=== PATIENT | male | born 1990 | race Caucasian/White ===

== ENCOUNTER 2019-08-10 10:42 | Outpatient (CLI) | payer OTHER, SELFPAY ==
--- NOTE | ~2019-08-10 | US_ITS ---
US breast LT complete DATE: 08/10/2019 11:02 INDICATION: Left breast pain TECHNIQUE: High-resolution ultrasound imaging and color flow imaging of the left breast COMPARISON: None FINDINGS: In the subareolar area of the left breast there is serpiginous hypoechoic tissue likely rep resenting subareolar fibroglandular tissue consistent with gynecomastia. Mammographic correlation is recommended. IMPRESSION: BI-RADS Category 0: Incomplete; need additional imaging evaluation Recommendation: Diagnostic left digital mammogram, including comparison MLO view of right breast Reviewed, dictated and finalized at [facility]. Reviewed, dictated and finalized at location A. TH MANAGEMENT DIRECTOR IMPRESSION: BI-RADS Category 0: Incomplete; need additional imaging evaluation Recommendation: Diagnostic left digital mammogram, including comparison MLO vie w of right breast
== END 2019-08-10 10:43 | disposition home or self-care (01) ==
LOC: ANHIMG 10:46
PROVIDERS: PCP Family Medicine; Visit Provider Physician Assistant Medical
DX: N64.4 Mastodynia (principal)
CPT/HCPCS: 76641

== ENCOUNTER 2019-08-14 11:30 | Outpatient (CLI) | payer OTHER, SELFPAY ==
[2019-08-14 12:11] LABS: Alanine Aminotransferase 69 U/L (4-50); Albumin Level 4.5 g/dL (3.5-5.1); Alkaline Phosphatase 68 U/L (38-126); Aspartate Amino Transferase 41 U/L (17-59); Bilirubin,Total 1.1 mg/dL (0.2-1.3); Blood Urea Nitrogen 13 mg/dL (9-20); Calcium 9.5 mg/dL (8.4-10.2); Carbon Dioxide 27 mmol/L (22-30); Chloride 103 mmol/L (98-107); Estimated Glomerular Filt Rate > 60; Glucose 109 mg/dL (75-110); Potassium 4.3 mmol/L (3.4-5.0); Sodium 138 mmol/L (137-145)
[2019-08-17 05:51] LABS: Prolactin 12.5 ng/mL (***)
[2019-08-18 07:34] LABS: Testosterone Total 184 ng/dL (250-1100)
== END 2019-08-14 11:31 | disposition home or self-care (01) ==
LOC: ANHLAB 11:36
PROVIDERS: PCP Family Medicine; Visit Provider Physician Assistant Medical
DX: R94.5 Abnormal results of liver function studies (principal); N62 Hypertrophy of breast; R63.5 Abnormal weight gain
CPT/HCPCS: 36415; 80053; 84146; 84403; 84443

== ENCOUNTER 2019-09-03 12:27 | Outpatient (CLI) | payer OTHER, SELFPAY ==
--- NOTE | ~2019-09-03 | MM_ITS ---
EXAMINATION: MM diagnostic mammo unilat LT INDICATION: Mastodynia TECHNIQUE: Craniocaudal and mediolateral oblique views of the left breast are obtained using full fie ld digital mammography. Mediolateral oblique view of the right breast is obtained for comparison. COMPARISON: None available BREAST PARENCHYMAL COMPOSITION: The breasts are almost entirely fatty. FINDINGS: There is flame-shaped subareolar density of the breasts, left greater than right. No suspic ious mass, calcification, or architectural distortion are identified. IMPRESSION: 1. Asymmetric gynecomastia, left greater than right. Clinical follow-up is recommended. BI-RADS Category 2: Benign finding(s). Reviewed, dictated and finalized at location A. IMPRESSION: 1. Asymmetric gynecomastia, left greater than right. Clinical follow-up is raven mmended. BI-RADS Category 2: Benign finding(s).
== END 2019-09-03 12:28 | disposition home or self-care (01) ==
LOC: ANHIMG 12:29
PROVIDERS: PCP Family Medicine; Visit Provider Physician Assistant Medical
DX: R92.8 Other abnormal and inconclusive findings on diagnostic imaging of breast (principal); N62 Hypertrophy of breast
CPT/HCPCS: 77065

== ENCOUNTER 2019-09-19 13:58 | Outpatient (CLI) | payer OTHER, SELFPAY ==
[2019-09-19 14:35] LABS: Alanine Aminotransferase 59 U/L (4-50); Albumin Level 4.6 g/dL (3.5-5.1); Alkaline Phosphatase 68 U/L (38-126); Aspartate Amino Transferase 42 U/L (17-59); Bilirubin,Total 0.9 mg/dL (0.2-1.3); Blood Urea Nitrogen 13 mg/dL (9-20); Calcium 9.6 mg/dL (8.4-10.2); Carbon Dioxide 28 mmol/L (22-30); Chloride 103 mmol/L (98-107); Estimated Glomerular Filt Rate > 60; Glucose 135 mg/dL (75-110); Sodium 137 mmol/L (137-145)
[2019-09-23 15:01] LABS: Testosterone Free 47.9 pg/mL (35.0-155.0); Testosterone Total 202 ng/dL (250-1100)
== END 2019-09-19 13:59 | disposition home or self-care (01) ==
LOC: ANHLAB 14:03
PROVIDERS: PCP Family Medicine; Referring Provider Nurse Practitioner Family; Visit Provider Physician Assistant Medical
DX: R74.8 Abnormal levels of other serum enzymes (principal); R79.89 Other specified abnormal findings of blood chemistry
CPT/HCPCS: 36415; 80053; 84402; 84403

== ENCOUNTER 2019-10-02 08:23 | Outpatient (CLI) | payer OTHER, SELFPAY ==
[2019-10-02 09:05] LABS: Hematocrit 47.2 % (42.0-52.0); Hemoglobin 15.9 g/dL (14.0-18.0); Mean Corpuscular HGB Conc 33.7 g/dl (32-36); Mean Corpuscular Hemoglobin 29.2 pg (26-34); Mean Corpuscular Volume 86.8 fl (80-100); Mean Platelet Volume 10.5 fl (7.4-10.4); Platelet Count Result 254 k/mm3 (150-375); Red Blood Count 5.44 M/mm3 (4.6-6.20); Red Cell Distribution Width 13.1 % (11.5-14.5); White Blood Count 7.4 K/mm3 (4.5-10.0)
[2019-10-02 09:20] LABS: Alanine Aminotransferase 54 U/L (4-50); Albumin Level 4.5 g/dL (3.5-5.1); Alkaline Phosphatase 77 U/L (38-126); Aspartate Amino Transferase 35 U/L (17-59); Bilirubin,Total 0.8 mg/dL (0.2-1.3); Blood Urea Nitrogen 17 mg/dL (9-20); Calcium 9.1 mg/dL (8.4-10.2); Carbon Dioxide 27 mmol/L (22-30); Chloride 103 mmol/L (98-107); Estimated Glomerular Filt Rate > 60; Glucose 115 mg/dL (75-110); Sodium 138 mmol/L (137-145)
[2019-10-02 09:46] LABS: Free T4 Free Thyroxine 0.99 ng/mL (0.78-2.19)
[2019-10-02 10:30] LABS: Folic Acid 3.9 ng/mL (2.76->20)
[2019-10-04 03:30] LABS: Sex Hormone Binding Globulin 10 nmol/L (10-50); Thyroid Peroxidase Antibodies 1 IU/mL (<9)
[2019-10-04 20:34] LABS: FSH 1.8 mIU/mL (1.6-8.0); LH 2.6 mIU/mL (1.5-9.3); Prolactin 17.6 ng/mL (***)
[2019-10-05 03:43] LABS: Adrenocorticotropic Hormone 286 pg/mL (6-50)
[2019-10-06 09:12] LABS: Testosterone Free 18.2 pg/mL (35.0-155.0); Testosterone Total 89 ng/dL (250-1100)
[2019-10-06 21:31] LABS: Z Score Male -0.8 SD (-2.0 - +2.0)
[2019-10-07 16:51] LABS: Estradiol, Ultrasensitive 29 pg/mL (< OR = 29)
== END 2019-10-02 08:24 | disposition home or self-care (01) ==
PROVIDERS: PCP Family Medicine; Visit Provider Internal Medicine Endocrinology, Diabetes & Metabolism
DX: R79.89 Other specified abnormal findings of blood chemistry (principal); R63.5 Abnormal weight gain
CPT/HCPCS: 36415; 80053; 81256; 82024; 82607; 82670; 82746; 83001; 83002; 84146; 84270; 84305; 84402; 84403; 84439; 84443; 84481; 85027; 86376

== ENCOUNTER 2019-10-03 07:53 | Outpatient (CLI) | payer OTHER, SELFPAY | END 2019-10-03 07:54 | disposition home or self-care (01) | PROVIDERS: PCP Family Medicine; Visit Provider Internal Medicine Endocrinology, Diabetes & Metabolism | DX: R63.5 Abnormal weight gain (principal) | CPT/HCPCS: 36415; 82533 ==

== ENCOUNTER 2019-10-04 09:04 | Outpatient (CLI) | payer OTHER, SELFPAY ==
--- NOTE | ~2019-10-04 | US_ITS ---
EXAMINATION: US right upper quadrant DATE: 10/04/2019 09:47 INDICATION: Other specified abnormal findings of blood chemistry. TECHNIQUE: Multiple grayscale and Doppler ultrasound images of the abdomen were obtained. COMPARISON: Ultrasound 08/13/2018 FINDINGS: The pancreas is not well visualized. There is diffuse hepatic steatosis. There is normal fl ow in main portal vein. The gallbladder is normal in size. No gallstones or gallbladder wall thickeni ng. There was no sonographic Whitlock sign. The common duct is normal and measures 4 mm. IMPRESSION: 1. Diffuse hepatic steatosis. Reviewed, dictated and finalized at location A.
--- NOTE | ~2019-10-04 | US_ITS ---
EXAMINATION: US thyroid DATE: 10/04/2019 09:49 INDICATION: Nontoxic goiter. TECHNIQUE: Multiple ultrasound images of the thyroid were obtained. COMPARISON: None. FINDINGS: The right thyroid lobe measures 5.4 x 2.8 x 1.8 cm. The left thyroid lobe measures 4.3 x 2.1 x 1.7 c m. There is normal echotexture and echogenicity throughout the thyroid gland. No discrete nodules id entified. Normal vascular flow is present. IMPRESSION: 1. Normal thyroid. Reviewed, dictated and finalized at location A. IMPRESSION: 1. Normal thyroid.
== END 2019-10-04 09:05 | disposition home or self-care (01) ==
LOC: ANHIMG 09:05
PROVIDERS: PCP Family Medicine; Referring Provider Internal Medicine Endocrinology, Diabetes & Metabolism; Visit Provider Physician Assistant Medical
DX: R79.89 Other specified abnormal findings of blood chemistry (principal); K76.0 Fatty (change of) liver, not elsewhere classified
CPT/HCPCS: 76536; 76705

== ENCOUNTER 2019-10-19 07:48 | Outpatient (RCR) | payer OTHER, SELFPAY ==
[2019-10-17 10:38] LABS: Cortisol Random 5.72 ug/dL
[2019-10-19 08:45] LABS: Cortisol Baseline 9.35 ug/dL
[2019-10-20 15:18] LABS: Adrenocorticotropic Hormone 17 pg/mL (6-50)
== END 2020-01-15 23:59 | disposition home or self-care (01) ==
LOC: ANHLAB 07:48
PROVIDERS: PCP Family Medicine; Visit Provider Internal Medicine Endocrinology, Diabetes & Metabolism
DX: R94.7 Abnormal results of other endocrine function studies (principal)
CPT/HCPCS: 36415; 82024; 82533; 96372; J0834

== ENCOUNTER 2019-10-25 12:48 | Outpatient (CLI) | payer OTHER, SELFPAY ==
--- NOTE | ~2019-10-25 | MR_ITS ---
EXAMINATION: MR pituitary wo/w con DATE: 10/25/2019 14:19 INDICATION: Abnormal pituitary function tests. TECHNIQUE: Magnetic resonance imaging (MRI) of the brain and brainstem was performed without and with 20 mL MultiHance intravenous contrast. Whole-brain sequences included sagittal T1-weighted FSE, axia l diffusion-weighted FS EPI, axial T2*-weighted GRE, axial T2-weighted FLAIR Propeller, and axial T2- weighted Propeller. Small kcbqd-nm-vows sequences included sagittal and coronal T1-weighted FSE cente red at the pituitary. Postcontrast sequences included small sqxqx-nm-zrii coronal T1-weighted FSE in a time course and sagittal T1-weighted FSE and whole-brain axial T1-weighted FSE. Apparent diffusion coefficient (ADC) maps were created. COMPARISON: None. FINDINGS: The pituitary is normal in size with height of 6 mm and concave superior margin. The infund ibulum is at midline. There is no intracranial hemorrhage, acute infarction, or abnormal intracranial mass lesion. The ventricles are normal in size. The orbits are normal. There is mild mucosal thicken ing in the ethmoid sinuses. The mastoid air cells are normal. IMPRESSION: 1. Normal brain. Normal pituitary. Reviewed, dictated and finalized at location E.
[2019-10-25 13:32] LABS: Estimated Glomerular Filt Rate > 60
== END 2019-10-25 12:49 | disposition home or self-care (01) ==
PROVIDERS: PCP Family Medicine; Visit Provider Internal Medicine Endocrinology, Diabetes & Metabolism
DX: R94.8 Abnormal results of function studies of other organs and systems (principal)
CPT/HCPCS: 36415; 70553; A9577

== ENCOUNTER 2019-10-31 08:56 | Outpatient (CLI) | payer OTHER, SELFPAY ==
[2019-10-31 09:44] LABS: Hemoglobin A1C 5.9 % (<5.7)
[2019-10-31 10:19] LABS: Cortisol Random 6.75 ug/dL
[2019-11-03 03:16] LABS: Insulin Level Total 53.7 uIU/mL (<=19.6)
[2019-11-05 04:32] LABS: Adrenocorticotropic Hormone 17 pg/mL (6-50)
[2019-11-12 11:26] LABS: Reference Lab Test Result Negative
== END 2019-10-31 08:57 | disposition home or self-care (01) ==
PROVIDERS: PCP Family Medicine; Visit Provider Internal Medicine Endocrinology, Diabetes & Metabolism
DX: R73.01 Impaired fasting glucose (principal); R94.7 Abnormal results of other endocrine function studies
CPT/HCPCS: 36415; 82024; 82533; 83036; 83516; 83525

== ENCOUNTER 2019-11-16 08:53 | Outpatient (CLI) | payer OTHER, SELFPAY ==
[2019-11-16 09:12] LABS: Hematocrit 47.9 % (42.0-52.0); Hemoglobin 16.3 g/dL (14.0-18.0); Mean Corpuscular Hemoglobin 29.2 pg (26-34); Mean Corpuscular Volume 85.8 fl (80-100); Mean Platelet Volume 9.9 fl (7.4-10.4); Platelet Count Result 281 k/mm3 (150-375); Red Blood Count 5.58 M/mm3 (4.6-6.20); White Blood Count 9.9 K/mm3 (4.5-10.0)
[2019-11-16 09:27] LABS: Alanine Aminotransferase 83 U/L (4-50); Albumin Level 4.6 g/dL (3.5-5.1); Alkaline Phosphatase 69 U/L (38-126); Aspartate Amino Transferase 51 U/L (17-59); Bilirubin,Total 1.2 mg/dL (0.2-1.3); Blood Urea Nitrogen 9 mg/dL (9-20); Calcium 9.3 mg/dL (8.4-10.2); Carbon Dioxide 29 mmol/L (22-30); Chloride 101 mmol/L (98-107); Estimated Glomerular Filt Rate > 60; Glucose 107 mg/dL (75-110); Sodium 137 mmol/L (137-145)
[2019-11-20 14:19] LABS: Testosterone Free 141.3 pg/mL (35.0-155.0); Testosterone Total 479 ng/dL (250-1100)
== END 2019-11-16 08:54 | disposition home or self-care (01) ==
LOC: ANHLAB 08:54
PROVIDERS: PCP Family Medicine; Visit Provider Internal Medicine Endocrinology, Diabetes & Metabolism
DX: E23.0 Hypopituitarism (principal)
CPT/HCPCS: 36415; 80053; 84402; 84403; 85027

== ENCOUNTER 2020-07-31 08:55 | Outpatient (CLI) | payer OTHER, SELFPAY ==
[2020-07-31 11:07] LABS: Iron 49 ug/dL (49-181)
[2020-07-31 11:12] LABS: Alanine Aminotransferase 39 U/L (4-50); Albumin Level 4.6 g/dL (3.5-5.1); Alkaline Phosphatase 74 U/L (38-126); Anion Gap 10 mmol/L (8-16); Aspartate Amino Transferase 34 U/L (17-59); Blood Urea Nitrogen 10 mg/dL (9-20); Calcium 9.5 mg/dL (8.4-10.2); Carbon Dioxide 29 mmol/L (22-30); Chloride 101 mmol/L (98-107); Estimated Glomerular Filt Rate > 60; Glucose 91 mg/dL (75-110); Potassium 3.9 mmol/L (3.4-5.0); Sodium 140 mmol/L (137-145)
[2020-07-31 11:17] LABS: Percent Iron Saturation 11 % (20-50)
[2020-07-31 11:24] LABS: Free T4 Free Thyroxine 1.03 ng/mL (0.78-2.19)
[2020-07-31 12:40] LABS: Vitamin B12 > 1000.0 pg/mL (239-931)
[2020-07-31 14:37] LABS: Hepatitis B Surface Antigen Negative (Negative)
[2020-07-31 14:43] LABS: HAV RESULT Negative (Negative); Hepatitis B Core IgM Result Negative (Negative)
[2020-07-31 14:54] LABS: Hepatitis C Virus Antibody Negative (Negative)
[2020-08-01 01:27] LABS: Folic Acid 6.3 ng/mL (2.76->20)
[2020-08-03 10:43] LABS: Sex Hormone Binding Globulin 11 nmol/L (10-50)
[2020-08-03 11:27] LABS: Triiodothyronine T3 Free 3.5 pg/mL (2.3-4.2)
[2020-08-04 12:13] LABS: Thyroid Peroxidase Antibodies <1 IU/mL (<9)
[2020-08-04 14:07] LABS: Testosterone Free 142.1 pg/mL (35.0-155.0); Testosterone Total 592 ng/dL (250-1100)
[2020-08-05 22:04] LABS: Mitochondrial (M2) Ab (IgG) <=20.0 U (<=20.0)
== END 2020-07-31 08:56 | disposition home or self-care (01) ==
PROVIDERS: PCP Family Medicine; Visit Provider Internal Medicine Endocrinology, Diabetes & Metabolism
DX: E29.1 Testicular hypofunction (principal); E53.8 Deficiency of other specified B group vitamins; R53.83 Other fatigue; R74.8 Abnormal levels of other serum enzymes
CPT/HCPCS: 36415; 80053; 80074; 82607; 82728; 82746; 83520; 83540; 83550; 84270; 84402; 84403; 84439; 84481; 86038; 86376

== ENCOUNTER 2020-08-08 07:58 | Outpatient (CLI) | payer OTHER, SELFPAY ==
[2020-08-08 08:50] LABS: Basophils Absolute Auto 0.1 K/mm3 (0.0-0.1); Basophils Percent Auto 0.8 % (0.2-1.2); Eosinophils Absolute Auto 0.4 K/mm3 (0-0.3); Eosinophils Percent Auto 3.4 % (0-4.4); Hematocrit 48.9 % (42.0-52.0); Hemoglobin 15.4 g/dL (14.0-18.0); Immature Granulocyte Absolute 0.03 K/mm3 (0.00-0.031); Immature Granulocyte Percent A 0.3 % (0-0.5); Immature Reticulocyte Fraction 25.7 % (3.0-15.9); Lymphocytes Absolute Auto 3.89 K/mm3 (0.9-3.2); Lymphocytes Percent Auto 37.3 % (18.3-44.2); Mean Corpuscular HGB Conc 31.5 g/dl (32-36); Mean Corpuscular Volume 76.3 fl (80-100); Mean Platelet Volume 10.4 fl (7.4-10.4); Monocytes Absolute Auto 0.8 K/mm3 (0.1-0.6); Monocytes Percent Auto 8.1 % (2.6-8.5); Neutrophils Absolute Auto 5.2 K/mm3 (1.3-6.7); Neutrophils Percent Auto 50.1 % (45.5-73.1); Platelet Count Result 295 k/mm3 (150-375); Red Blood Count 6.41 M/mm3 (4.6-6.20); Red Cell Distribution Width 17.4 % (11.5-14.5); Reticulocyte Hemoglobin Conten 28.3 pg (28.2-35.7); Reticulocyte Percent 1.66 % (0.7-4.3); Reticulocytes Absolute 0.11 B/L (32.2-175.7); White Blood Count 10.4 K/mm3 (4.5-10.0)
[2020-08-08 09:05] LABS: Alanine Aminotransferase 35 U/L (4-50); Albumin Level 4.3 g/dL (3.5-5.1); Alkaline Phosphatase 61 U/L (38-126); Anion Gap 7 mmol/L (8-16); Aspartate Amino Transferase 38 U/L (17-59); Blood Urea Nitrogen 13 mg/dL (9-20); Calcium 8.8 mg/dL (8.4-10.2); Carbon Dioxide 30 mmol/L (22-30); Chloride 101 mmol/L (98-107); Estimated Glomerular Filt Rate > 60; Glucose 100 mg/dL (75-110); Potassium 3.9 mmol/L (3.4-5.0); Sodium 138 mmol/L (137-145)
[2020-08-08 09:29] LABS: Free T4 Free Thyroxine 1.04 ng/mL (0.78-2.19)
[2020-08-14 02:10] LABS: Hematocrit 47.9 % (38.5-50.0); MCH 24.3 pg (27.0-33.0); MCV 77.5 FL (80.0-100.0); RDW 17.4 % (11.0-15.0); Red Blood Cell Count 6.18 Mill/uL (4.20-5.80)
== END 2020-08-08 07:59 | disposition home or self-care (01) ==
PROVIDERS: PCP Family Medicine; Visit Provider Internal Medicine Endocrinology, Diabetes & Metabolism
DX: E29.1 Testicular hypofunction (principal); R73.03 Prediabetes; E61.1 Iron deficiency
CPT/HCPCS: 36415; 80053; 83021; 84439; 84443; 85025; 85046

== ENCOUNTER 2020-08-12 10:57 | Outpatient (CLI) | payer OTHER, SELFPAY ==
[2020-08-12 11:50] LABS: Cholesterol 176 mg/dL (0-200); HDL Direct 35 mg/dL; Triglycerides 218 mg/dL (<150)
[2020-08-12 12:06] LABS: LDL Cholesterol Direct 109 mg/dL
[2020-08-12 13:24] LABS: IFOB Positive Control Positive; Immunochemical Fecal Occult Bl Negative (N)
[2020-08-15 19:14] LABS: Testosterone Free 219.5 pg/mL (35.0-155.0); Testosterone Total 627 ng/dL (250-1100)
[2020-08-16 05:21] LABS: Sex Hormone Binding Globulin 12 nmol/L (10-50)
[2020-08-19 12:22] LABS: Hematocrit 50.1 % (38.5-50.0); Hemoglobin 16.1 g/dL (13.2-17.1); MCH 24.8 pg (27.0-33.0); MCV 77.3 FL (80.0-100.0); RDW 17.8 % (11.0-15.0); Red Blood Cell Count 6.48 Mill/uL (4.20-5.80)
== END 2020-08-12 10:58 | disposition home or self-care (01) ==
LOC: ANHLAB 11:00
PROVIDERS: PCP Family Medicine; Visit Provider Internal Medicine Endocrinology, Diabetes & Metabolism
DX: E29.1 Testicular hypofunction (principal); R73.03 Prediabetes; E61.1 Iron deficiency
CPT/HCPCS: 36415; 80061; 82274; 83021; 84270; 84402; 84403

== ENCOUNTER 2020-11-11 03:54 | Emergency (ER) | payer OTHER, SELFPAY ==
--- NOTE | 2020-11-11 04:05 | PC.NURSE ---
explained to the patient that the doctor would see him, and give him a script for Truvada, explained the side effects of the medications. Pt given resources for the HIV clinics in the area. pt said he would follow up with them.
== END 2020-11-11 04:24 | disposition left against medical advice (07) ==
LOC: ANHED 04:08
PROVIDERS: PCP Family Medicine
DX: Z53.21 Procedure and treatment not carried out due to patient leaving prior to being seen by health care provider (principal)
CPT/HCPCS: 99199

== ENCOUNTER 2020-11-12 16:15 | Emergency (ER) | payer OTHER, SELFPAY ==
[2020-11-12 16:22] VITALS: BP 149/96; PULSE 92; RESP 16; TEMP 36.1; O2SAT 98
[2020-11-12 17:47] VITALS: BP 161/82; PULSE 78; RESP 16; O2SAT 100
--- NOTE | 2020-11-12 17:50 | ED.GENADULT ---
HPI - General Adult General Chief complaint: Unspecified Stated complaint: AIDS exposure, seen here 2 days ago for same Time Seen by Provider: 11/12/20 17:38 Source: patient and RN notes reviewed Limitations: no limitations History of Present Illness HPI narrative: Patient is a 30-year-old male who presents to emergency department for evaluation of concern for possible exposure to HIV patient had sex with another male last night noted to his rectal intercourse when the other individuals condom broke noting that he did ejaculate into him. Patient knows nothing of this person's history. Patient presents with concern for HIV patient does not have history of HIV or other illnesses and is followed by Dr. Lujan Related Data Home Medications Medication Instructions Recorded Confirmed testosterone cypionate 200 mg/mL 100 mg IM WEEKLY ml 11/09/19 intramuscular oil duloxetine 60 mg capsule,delayed 60 mg PO DAILY 09/08/20 release Allergies Allergy/AdvReac Type Severity Reaction Status Date / Time amphetamine Allergy Mild anxiety Verified 09/08/20 13:45 increased dextroamphetamine Allergy Mild anxiety Verified 09/08/20 13:45 increased prednisone Allergy Mild anxiety Verified 09/08/20 13:45 worse Penicillins Allergy Unknown Unknown Verified 09/08/20 13:45 Review of Systems Review of Systems: All systems reviewed & are unremarkable except as noted in HPI and below PMFSH Past Medical History Medical History (Updated 11/12/20 @ 18:45 by Chase Webb PA-C) Adult BMI 39.0-39.9 kg/sq m Anxiety associated with depression Family History Family History Grandparent Hypertension Family history of coronary artery disease Diabetes mellitus Other Family history of malignant neoplasm of ovary Social History Social History Smoking status: Former smoker Tobacco type: e-cigarettes/vaping Second hand tobacco smoke exposure: No Alcohol intake: never Substance use: never Exam Narrative: Exam Narrative: GENERAL: Well-appearing, obese, and in no acute distress. HEAD: Normocephalic, atraumatic. EYES: PERRLA and EOMI. ENT: Nares clear, no rhinorrhea or epistaxis. Mucous membranes moist. CHEST: Clear to auscultation. No respiratory distress. No wheezes rales or rhonchi HEART: Regular rate and rhythm. No murmur heard. EXTREMITIES: Normal range of motion. No edema. SKIN: Warm, dry, no rash. NEURO: No focal deficits. Alert and oriented x3. PSYCH: Normal mood and affect. Course Consultations Consultation #1: Spoke with Dr. Cross with infectious disease who recommends testing the patient for HIV gaining baseline kidney function and starting the patient on Truvada for 28 days for first exposure prophylaxis with repeat testing 4 weeks and 12 weeks and follow-up with primary care. Patient to be counseled on GI side effect Discussed case with Dr. Lujan the patient's primary care is aware of the case and will follow the patient for reevaluation Date: 11/12/20 Vital Signs Vital signs: Vital Signs Temperature 97.0 F L 11/12/20 16:22 Pulse Rate 92 11/12/20 16:22 Respiratory Rate 16 11/12/20 16:22 Blood Pressure 149/96 H 11/12/20 16:22 Pulse Oximetry 98 11/12/20 16:22 Temperature 97.0 F L 11/12/20 16:22 Pulse Rate 78 11/12/20 17:47 Respiratory Rate 16 11/12/20 17:47 Blood Pressure 161/82 H 11/12/20 17:47 Pulse Oximetry 100 11/12/20 17:47 Medical Decision Making [facility] Narrative Medical decision making narrative: Patient evaluated will follow with primary care for further evaluation and testing agreeing with this plan hemodynamically stable afebrile nontoxic-appearing in no distress present Vital Signs Vital Signs: Vital Signs Temperature 97.0 F L 11/12/20 16:22 Pulse Rate 92 11/12/20 16:22 Respiratory Rate 16 11/12/20 16:22 Blood Pressure 149/
[2020-11-12 19:10] LABS: Anion Gap 11 mmol/L (8-16); Blood Urea Nitrogen 9 mg/dL (9-20); Calcium 9.7 mg/dL (8.4-10.2); Carbon Dioxide 30 mmol/L (22-30); Chloride 101 mmol/L (98-107); Estimated CRCL calculation 112 ml/min; Estimated Glomerular Filt Rate > 60; Glucose 86 mg/dL (75-110); Potassium 4.1 mmol/L (3.4-5.0); Sodium 142 mmol/L (137-145)
[2020-11-12 19:40] VITALS: BP 165/108; PULSE 78; RESP 16; O2SAT 98
[2020-11-12 19:50] LABS: HIV 1/2 Ab P24 Ag Result Negative (Negative)
== END 2020-11-12 19:40 | disposition home or self-care (01) ==
PROVIDERS: Emergency Medicine Emergency Medical Services; Emergency Provider Emergency Medicine; PCP Family Medicine
DX: Z77.21 Contact with and (suspected) exposure to potentially hazardous body fluids (principal); F17.290 Nicotine dependence, other tobacco product, uncomplicated
CPT/HCPCS: 36415; 80048; 86703; 99283; G0432

== ENCOUNTER 2021-04-01 09:48 | Outpatient (RCR) | payer OTHER, SELFPAY ==
--- NOTE | 2021-04-01 11:06 | PTOPEVAL ---
PHYSICAL THERAPY EVALUATION AND PLAN OF CARE 04-01-21 Thank you for referring Nick Kendrick to [facility] for the diagnosis of low back pain with sciatica. The order is dated January, but he reports he was busy with school and just now able to get started with therapy. He is scheduled to be seen for therapy? 1 x/week for 5 weeks. Please review, sign, date and return this plan of care ELMER. I agree with and certify that the following plan of care is medically necessary. Referring Physician Date Attending Provider: DELFINA Mercedes PT Outpatient Evaluation Document 04/01/21 10:00 NATACHA (Rec: 04/01/21 11:06 NATACHA [id number]) Outpatient Past Medical History Past Medical History Source of Past Medical History Patient Neurological History Hx Neurological Disorders No Significant History Cardiovascular History Hx Cardiac Disorders No Significant History Respiratory History Hx Asthma Yes: slight wheezing Gastrointestinal History Hx Gastrointestinal Disorders No Significant History Genitourinary History Hx Genitourinary Disorders No Significant History Musculoskeletal History Hx Back Pain Yes: chronic back issues, about past 2 years Hx Other Musculoskeletal Disorders Yes: neck pain Endocrine History Hx Endocrine Disorders No Significant History HEENT History Hx HEENT Disorders No Significant History Other History Hx Other Medical Conditions Yes: weight gain over the past 3 yr 75#; Evaluation Information Problem Diagnosis low back pain with sciatic L Onset October 2020 Subjective Information gradual increase in chronic Query Text:As Reported By Patient/ back pain; tried doing more Family walking and stretching- did not help Diagnostic Tests X-Rays For This Problem No MRI For This Problem No Previous Treatments Previous Treatments For This Problem no PT for back Prior Level of Function Activity Level (Last 3 Months) Occupation student-- Activity of Daily Living Ability Independent Indoor/Home Mobility Independent Community Mobility Independent Stairs Ability Independent Functional Cognition (Planning, Shopping Independent , Taking Medications) Cooking Yes Cleaning Yes Laundry Yes Shopping Yes Driving Yes Comments Additional Prior Level of Function when sciatic pain increases-- Comments cannot walk or do much activity; attending college and busy-- not able to do much fitness
--- NOTE | 2021-04-10 11:58 | PCPTNOTE ---
pt did not show for today's appt;
--- NOTE | 2021-04-17 11:22 | PCPTNOTE ---
Patient did not show up for scheduled appointment this date. Called and had to leave a message.
--- NOTE | 2021-04-24 10:36 | PCPTNOTE ---
Patient called & cancelled scheduled appointment this date due to in family.
--- NOTE | 2021-05-01 11:09 | PCPTNOTE ---
Patient called to reschedule appointment to Tuesday, May 04. No reason given.
--- NOTE | 2021-05-04 14:55 | PCPTNOTE ---
Patient called & cancelled scheduled appointment this date, no reason given.
--- NOTE | 2021-05-06 11:51 | PCPTNOTE ---
pt did not show for today's reevaluation; discharged from PT
--- NOTE | 2021-05-06 11:52 | PCPTNOTE ---
PHYSICAL THERAPY DISCHARGE 05-06-21 Attending Provider: DELFINA Mercedes Patient:Nick Kendrick Date of :1990 Mr. Kendrick has not returned for any further treatments since the initial evaluation on 04/01/2021, therefore he will be discharged at this time. He called/canceled 3 and did not show for 3 appointments. The goals were not addressed. Thank you for referring Nick to [facility]. Please review, sign, date and return this discharge summary ELMER. I have been updated about the patient's current status and I agree with discharge from the above service at this time. Referring Physician Date
== END 2021-05-07 10:49 | disposition home or self-care (01) ==
LOC: ANHPT 09:48
PROVIDERS: PCP Family Medicine; Visit Provider Physician Assistant Medical
DX: M54.42 Lumbago with sciatica, left side (principal); G89.29 Other chronic pain
CPT/HCPCS: 97161

== ENCOUNTER 2021-06-30 10:16 | Outpatient (CLI) | payer OTHER, SELFPAY ==
[2021-06-30 10:33] LABS: Basophils Absolute Auto 0.1 K/mm3 (0.0-0.1); Eosinophils Absolute Auto 0.3 K/mm3 (0-0.3); Eosinophils Percent Auto 3.2 % (0-4.4); Hematocrit 53.5 % (42.0-52.0); Hemoglobin 17.7 g/dL (14.0-18.0); Immature Granulocyte Absolute 0.04 K/mm3 (0.00-0.031); Immature Granulocyte Percent A 0.4 % (0-0.5); Lymphocytes Absolute Auto 3.35 K/mm3 (0.9-3.2); Lymphocytes Percent Auto 31.9 % (18.3-44.2); Mean Corpuscular HGB Conc 33.1 g/dl (32-36); Mean Corpuscular Hemoglobin 26.8 pg (26-34); Mean Corpuscular Volume 81.1 fl (80-100); Mean Platelet Volume 10.5 fl (7.4-10.4); Monocytes Absolute Auto 0.9 K/mm3 (0.1-0.6); Monocytes Percent Auto 8.6 % (2.6-8.5); Neutrophils Absolute Auto 5.8 K/mm3 (1.3-6.7); Neutrophils Percent Auto 54.9 % (45.5-73.1); Platelet Count Result 270 k/mm3 (150-375); Red Cell Distribution Width 15.9 % (11.5-14.5); White Blood Count 10.5 K/mm3 (4.5-10.0)
[2021-06-30 10:45] LABS: Anion Gap 11 mmol/L (8-16); Blood Urea Nitrogen 14 mg/dL (9-20); Carbon Dioxide 29 mmol/L (22-30); Chloride 99 mmol/L (98-107); Estimated Glomerular Filt Rate > 60; Glucose 97 mg/dL (65-110); Potassium 3.7 mmol/L (3.4-5.0); Sodium 139 mmol/L (137-145)
[2021-06-30 11:14] LABS: Prostate Specific Antigen 0.7 ng/mL (< OR = 4.0)
[2021-06-30 11:34] LABS: Vitamin B12 > 1000.0 pg/mL (239-931)
[2021-07-04 13:40] LABS: Testosterone Free 110.7 pg/mL (35.0-155.0); Testosterone Total 510 ng/dL (250-1100)
== END 2021-06-30 10:17 | disposition home or self-care (01) ==
LOC: ANHLAB 10:19
PROVIDERS: PCP Family Medicine; Visit Provider Physician Assistant Medical
DX: R03.0 Elevated blood-pressure reading, without diagnosis of hypertension (principal); E53.8 Deficiency of other specified B group vitamins; E34.9 Endocrine disorder, unspecified
CPT/HCPCS: 36415; 80048; 82607; 84153; 84402; 84403; 84443; 85025

== ENCOUNTER 2021-09-24 10:40 | Outpatient (CLI) | payer OTHER, SELFPAY ==
[2021-09-24 10:58] LABS: Basophils Absolute Auto 0.1 K/mm3 (0.0-0.1); Eosinophils Absolute Auto 0.4 K/mm3 (0-0.3); Eosinophils Percent Auto 3.9 % (0-4.4); Hematocrit 56.7 % (42.0-52.0); Hemoglobin 18.1 g/dL (14.0-18.0); Immature Granulocyte Absolute 0.05 K/mm3 (0.00-0.031); Immature Granulocyte Percent A 0.5 % (0-0.5); Lymphocytes Percent Auto 32.2 % (18.3-44.2); Mean Corpuscular HGB Conc 31.9 g/dl (32-36); Mean Corpuscular Hemoglobin 26.5 pg (26-34); Mean Corpuscular Volume 82.9 fl (80-100); Mean Platelet Volume 10.5 fl (7.4-10.4); Monocytes Absolute Auto 0.8 K/mm3 (0.1-0.6); Neutrophils Percent Auto 55.4 % (45.5-73.1); Platelet Count Result 292 k/mm3 (150-375); Red Blood Count 6.84 M/mm3 (4.6-6.20); Red Cell Distribution Width 15.5 % (11.5-14.5); White Blood Count 10.9 K/mm3 (4.5-10.0)
[2021-09-28 15:45] LABS: Testosterone Free 108.3 pg/mL (35.0-155.0); Testosterone Total 531 ng/dL (250-1100)
== END 2021-09-24 10:41 | disposition home or self-care (01) ==
LOC: ANHLAB 10:43
PROVIDERS: Physician Assistant Medical; PCP Family Medicine; Visit Provider Nurse Practitioner Family
DX: D72.829 Elevated white blood cell count, unspecified (principal); E34.9 Endocrine disorder, unspecified; F41.9 Anxiety disorder, unspecified; E53.8 Deficiency of other specified B group vitamins
CPT/HCPCS: 36415; 82607; 84402; 84403; 84443; 85025

== ENCOUNTER 2021-12-12 13:30 | Outpatient (CLI) | payer OTHER, SELFPAY ==
[2021-12-12 13:52] LABS: Basophils Absolute Auto 0.1 K/mm3 (0.0-0.1); Basophils Percent Auto 1.1 % (0.2-1.2); Eosinophils Absolute Auto 0.4 K/mm3 (0-0.3); Eosinophils Percent Auto 4.4 % (0-4.4); Hemoglobin 18.2 g/dL (14.0-18.0); Immature Granulocyte Absolute 0.02 K/mm3 (0.00-0.031); Immature Granulocyte Percent A 0.3 % (0-0.5); Lymphocytes Absolute Auto 2.62 K/mm3 (0.9-3.2); Lymphocytes Percent Auto 33.2 % (18.3-44.2); Mean Corpuscular HGB Conc 31.9 g/dl (32-36); Mean Corpuscular Hemoglobin 26.3 pg (26-34); Mean Corpuscular Volume 82.5 fl (80-100); Mean Platelet Volume 10.4 fl (7.4-10.4); Monocytes Absolute Auto 0.6 K/mm3 (0.1-0.6); Monocytes Percent Auto 7.1 % (2.6-8.5); Neutrophils Absolute Auto 4.3 K/mm3 (1.3-6.7); Neutrophils Percent Auto 53.9 % (45.5-73.1); Platelet Count Result 296 k/mm3 (150-375); Red Blood Count 6.91 M/mm3 (4.6-6.20); Red Cell Distribution Width 17.3 % (11.5-14.5); White Blood Count 7.9 K/mm3 (4.5-10.0)
[2021-12-12 16:56] LABS: Iron 90 ug/dL (49-181)
[2021-12-12 17:05] LABS: Percent Iron Saturation 22 % (20-50)
[2021-12-18 11:42] LABS: Testosterone Free 12.7 pg/mL (35.0-155.0); Testosterone Total 58 ng/dL (250-1100)
== END 2021-12-12 13:31 | disposition home or self-care (01) ==
LOC: ANHLAB 13:32
PROVIDERS: PCP Family Medicine; Visit Provider Physician Assistant Medical
DX: D64.9 Anemia, unspecified (principal); E53.8 Deficiency of other specified B group vitamins; E34.9 Endocrine disorder, unspecified; D58.2 Other hemoglobinopathies
CPT/HCPCS: 36415; 82607; 83540; 83550; 84402; 84403; 85025

== ENCOUNTER 2022-02-07 07:12 | Emergency (ER) | payer OTHER, SELFPAY ==
--- NOTE | ~2022-02-07 | XR_ITS ---
EXAMINATION: XR chest 1V portable DATE: 02/07/2022 07:57 INDICATION: Cough. TECHNIQUE: A single frontal view of the chest was obtained. COMPARISON: Chest 2 views 05/26/2017 FINDINGS: The chest demonstrates clear lungs without pneumonia, pleural effusion, or pneumothorax. Th e heart size is normal. IMPRESSION: 1. No acute cardiopulmonary disease. Reviewed, dictated and finalized at location A.
[2022-02-07 07:19] VITALS: BP 166/105; PULSE 89; RESP 18; TEMP 36.5; O2SAT 98
--- NOTE | 2022-02-07 07:38 | ED.GENADULT ---
HPI - General Adult General Chief complaint: Nausea/Vomiting/Diarrhea Stated complaint: diarrhea, clogged ears, and dental pain Time Seen by Provider: 02/07/22 07:18 Source: RN notes reviewed History of Present Illness HPI narrative: Patient presents emergency department from home for multiple complaints. Patient states that he initially became ill on January 27 as he states at that time he had had clogged ears and rhinorrhea as well as a mild cough this been nonproductive. He states he had seen his PCP and they placed him on azithromycin states also during that time he developed pain in his left lower molar where his wisdom tooth was erupting through states he is also seen his dentist and they had placed him on amoxicillin at that time the patient had taken both the azithromycin amoxicillin and then had been switched to clindamycin which she is currently finishing for his tooth with approximately 2 days left. He states that he developed diarrhea approximately 3 days ago and is having approximately 4 episodes of diarrhea a day he had called the doctor's exchange today and they told to come the emergency department to be evaluated for possible C. difficile he denies any fevers or chills he denies any abdominal pain nausea or vomiting or any other symptoms Related Data Home Medications Medication Instructions Recorded Confirmed duloxetine 60 mg capsule,delayed 60 mg PO DAILY 09/08/20 02/02/22 release (Cymbalta) vortioxetine 5 mg tablet 5 mg PO DAILY 02/02/22 02/02/22 (Trintellix) Allergies Allergy/AdvReac Type Severity Reaction Status Date / Time amphetamine Allergy Mild anxiety Verified 02/07/22 07:38 increased dextroamphetamine Allergy Mild anxiety Verified 02/07/22 07:38 increased prednisone Allergy Mild anxiety Verified 02/07/22 07:38 worse Penicillins Allergy Unknown Unknown Verified 02/07/22 07:38 Review of Systems Review of Systems: Gen.: Denies fevers or chills ENT: See HPI Respiratory: Denies shortness of breath or cough CV: Denies chest pain or palpitations GI: Denies abdominal pain nausea, emesis reports diarrhea Musculoskeletal: Denies back pain or muscle pain Neuro: Denies numbness, tingling, weakness or focal weakness Skin: Denies rash Except as documented, all other systems reviewed and negative PMFSH Past Medical History Medical History Adult BMI 39.0-39.9 kg/sq m Anxiety associated with depression BMI 36.0-36.9,adult BMI 38.0-38.9,adult Family History Family History Grandparent Hypertension Family history of coronary artery disease Diabetes mellitus Father Diabetes mellitus Mother Renal tubular acidosis Sibling Crohn's disease Other Family history of malignant neoplasm of ovary Social History Social History Smoking packs per day: 1 Smoking cigarettes per day: 20.0 Years smoked: 10 Smoking pack-years: 10.00 Smoking status: Current every day smoker Tobacco type: e-cigarettes/vaping Second hand tobacco smoke exposure: No Alcohol intake: never Substance use: never Substance use type: does not use Additional occupation/education comments: [id number] Gender identity (if verbalized by the patient): Male Exam Narrative: APPEARANCE: No acute distress, nontoxic, resting in bed EYES: EOMI HEENT: Normocephalic, atraumatic, TMs normal appearance nares patent oral mucosa moist erythema exudate posterior pharynx the left lower wisdom tooth is erupting mild erythema of the gum there is no fluctuance there is no drainage there is no swelling of the cheek in this region tolerating own secretions speaking in normal voice RESPIRATORY: No respiratory distress wheezing in the bilateral upper lung crocker no rhonchi CARDIOVASCULAR: Regular rate and rhythm without murmurs rubs or gallops. ABDOMINAL: S
[2022-02-07 07:44] LABS: Basophils Absolute Auto 0.1 K/mm3 (0.0-0.1); Basophils Percent Auto 0.9 % (0.2-1.2); Eosinophils Absolute Auto 0.5 K/mm3 (0-0.3); Eosinophils Percent Auto 4.2 % (0-4.4); Hematocrit 54.7 % (42.0-52.0); Hemoglobin 18.2 g/dL (14.0-18.0); Immature Granulocyte Absolute 0.06 K/mm3 (0.00-0.031); Immature Granulocyte Percent A 0.5 % (0-0.5); Lymphocytes Absolute Auto 3.71 K/mm3 (0.9-3.2); Lymphocytes Percent Auto 32.7 % (18.3-44.2); Mean Corpuscular HGB Conc 33.3 g/dl (32-36); Mean Corpuscular Hemoglobin 26.6 pg (26-34); Mean Corpuscular Volume 80.1 fl (80-100); Mean Platelet Volume 10.1 fl (7.4-10.4); Monocytes Absolute Auto 0.6 K/mm3 (0.1-0.6); Monocytes Percent Auto 5.6 % (2.6-8.5); Neutrophils Absolute Auto 6.4 K/mm3 (1.3-6.7); Neutrophils Percent Auto 56.1 % (45.5-73.1); Platelet Count Result 323 k/mm3 (150-375); Red Blood Count 6.83 M/mm3 (4.6-6.20); Red Cell Distribution Width 16.7 % (11.5-14.5); White Blood Count 11.3 K/mm3 (4.5-10.0)
[2022-02-07 07:45] LABS: Appearance Urine Clear (Clear); Bilirubin Urine Negative (Negative); Blood Urine Negative (Negative); Color Urine Yellow (Yellow); Glucose Urine UA Negative (Negative); Ketones Urine Negative (Negative); Leukocyte Esterase Ur Negative LEU/UL (Negative); Nitrate Urine Negative (Negative); Protein Urine Negative (Negative); Specific Grav Ur 1.015 (1.001-1.035); Urobilinogen Urine 0.2 mg/dL (<2.0)
[2022-02-07] MEDS: HYDROcodone/acetaminophen (*CRX) 5-325 MG TABLET 1 TAB PO (07:47)
[2022-02-07] MEDS: SODIUM CHLORIDE 0.9% IV 1,000 ML 999 ML IV CONT (07:48)
[2022-02-07 07:53] LABS: Alanine Aminotransferase 27 U/L (6-50); Albumin Level 4.5 g/dL (3.5-5.1); Alkaline Phosphatase 61 U/L (38-126); Anion Gap 9 mmol/L (8-16); Aspartate Amino Transferase 30 U/L (17-59); Bilirubin,Total 1.5 mg/dL (0.2-1.3); Blood Urea Nitrogen 12 mg/dL (9-20); Calcium 9.2 mg/dL (8.4-10.2); Carbon Dioxide 25 mmol/L (22-30); Chloride 103 mmol/L (98-107); Estimated CRCL calculation 115 ml/min; Estimated Glomerular Filt Rate > 60; Glucose 95 mg/dL (65-110); Lipase 83 U/L (23-300); Potassium 3.9 mmol/L (3.4-5.0); Sodium 137 mmol/L (137-145)
[2022-02-07] MEDS: IPRATROPIUM BR 0.02% INH SOLN 0.5 MG/2.5 ML VIAL INHALATION (07:57)
[2022-02-07 07:59] VITALS: PULSE 79; RESP 20
[2022-02-07 08:09] VITALS: PULSE 78; RESP 20
[2022-02-07 08:13] LABS: Add Urine Microscopic? NO
[2022-02-07 08:51] LABS: SARS-CoV-2 RNA PCR Negative
[2022-02-07 10:49] VITALS: BP 166/94; PULSE 72; RESP 18; O2SAT 98
[2022-02-07 12:47] LABS: Toxigenic C. Diff NEGATIVE (NEGATIVE)
[2022-02-07 13:16] VITALS: BP 167/86; PULSE 87; RESP 18; O2SAT 98
== END 2022-02-07 13:17 | disposition home or self-care (01) ==
PROVIDERS: Emergency Provider Emergency Medicine; PCP Family Medicine
DX: K08.89 Other specified disorders of teeth and supporting structures (principal); H92.03 Otalgia, bilateral; R19.7 Diarrhea, unspecified; Z20.822 Contact with and (suspected) exposure to COVID-19; F41.9 Anxiety disorder, unspecified; F32.9 Major depressive disorder, single episode, unspecified
CPT/HCPCS: 36415; 71045; 80053; 81003; 83690; 85025; 87493; 94640; 96360; 99283; A9270; C9803; J7030; U0003; U0005

== ENCOUNTER 2022-04-26 06:51 | Outpatient (CLI) | payer OTHER, SELFPAY ==
--- NOTE | ~2022-04-26 | XR_ITS ---
EXAM: XR lumbar spine 2-3V DATE: 04/26/2022 07:10 HISTORY: M54.50 - Low back pain, BURNING SENSATION DOWN LEFT LEG . COMPARISON: 12/11/2018. FINDINGS: 5 nonrib-bearing lumbar-type vertebral bodies. Pedicles intact. Normal vertebral body alig nment. Vertebral body heights preserved. Disc spaces maintained. Normal facets and posterior elements . No fracture or dislocation. IMPRESSION: Normal lumbar spine radiograph findings. Reviewed, dictated and finalized at location K. TION SUPERVISOR
== END 2022-04-26 06:52 | disposition home or self-care (01) ==
LOC: ANHIMG 06:55
PROVIDERS: PCP Family Medicine; Visit Provider Nurse Practitioner Family
DX: M54.50 Low back pain, unspecified (principal)
CPT/HCPCS: 72100

== ENCOUNTER 2022-06-18 15:52 | Outpatient (CLI) | payer OTHER, SELFPAY ==
--- NOTE | ~2022-06-18 | US_ITS ---
US scrotum doppler DATE: 06/18/2022 16:59 INDICATION: Testicular hypofunction, diminishing size of testicles; patient taking testosterone suppl ements TECHNIQUE: Real-time color flow imaging and Doppler analysis COMPARISON: None FINDINGS: Right testicle measures 3.5 x 1.7 x 2.2 cm. Left testicle measures 3.3 x 1.7 x 2.3 cm. No t esticular mass lesion is noted. There is vascular flow to both testicles. Bilateral epididymal cysts, measuring up to approximately 8 mm on the right and 7 mm on the left. Small right hydrocele. IMPRESSION: No evidence of testicular mass lesion or torsion Reviewed, dictated and finalized at Location [facility]. Reviewed, dictated and finalized at location A. AROLE COUNSELING AIDE
== END 2022-06-18 15:53 | disposition home or self-care (01) ==
LOC: ANHIMG 15:53
PROVIDERS: PCP Family Medicine; Visit Provider Internal Medicine Endocrinology, Diabetes & Metabolism
DX: E29.1 Testicular hypofunction (principal)
CPT/HCPCS: 76870; 93976

== ENCOUNTER 2022-07-10 12:12 | Outpatient (CLI) | payer OTHER, SELFPAY ==
[2022-07-10 12:27] LABS: Hematocrit 54.2 % (42.0-52.0); Hemoglobin 17.3 g/dL (14.0-18.0)
[2022-07-10 12:34] LABS: Hemoglobin A1C 5.4 % (<5.7)
[2022-07-16 13:38] LABS: Testosterone Free 66.1 pg/mL (46.0-224.0); Testosterone Total 273 ng/dL (250-1100)
== END 2022-07-10 12:13 | disposition home or self-care (01) ==
LOC: ANHLAB 12:13
PROVIDERS: PCP Family Medicine; Visit Provider Internal Medicine Endocrinology, Diabetes & Metabolism
DX: E29.1 Testicular hypofunction (principal); D58.2 Other hemoglobinopathies; R73.03 Prediabetes
CPT/HCPCS: 36415; 83036; 84402; 84403; 85014; 85018

== ENCOUNTER 2022-07-13 16:11 | Outpatient (CLI) | payer OTHER, SELFPAY ==
[2022-07-13 16:28] LABS: Hematocrit 55.3 % (42.0-52.0); Hemoglobin 17.7 g/dL (14.0-18.0)
== END 2022-07-13 16:12 | disposition home or self-care (01) ==
PROVIDERS: PCP Family Medicine; Referring Provider Internal Medicine; Visit Provider Internal Medicine Endocrinology, Diabetes & Metabolism
DX: D58.2 Other hemoglobinopathies (principal); E29.1 Testicular hypofunction
CPT/HCPCS: 36415; 85014; 85018

== ENCOUNTER 2022-07-26 16:37 | Outpatient (CLI) | payer OTHER, SELFPAY ==
[2022-07-26 17:18] LABS: Magnesium 2.2 mg/dL (1.6-2.3)
[2022-07-26 17:46] LABS: Vitamin D 25 Hydroxy 55.1 ng/mL
[2022-07-26 17:59] LABS: HIV 1/2 Ab P24 Ag Result Negative (Negative)
[2022-07-27 16:57] LABS: Cholesterol 177 mg/dL (0-200); HDL Direct 33 mg/dL; Triglycerides 174 mg/dL (<150)
[2022-07-27 17:08] LABS: LDL Cholesterol Direct 98 mg/dL
== END 2022-07-26 16:38 | disposition home or self-care (01) ==
LOC: ANHLAB 16:39
PROVIDERS: PCP Family Medicine; Visit Provider Physician Assistant Medical
DX: E55.9 Vitamin D deficiency, unspecified (principal); E53.8 Deficiency of other specified B group vitamins; R25.2 Cramp and spasm; E29.1 Testicular hypofunction; Z11.3 Encounter for screening for infections with a predominantly sexual mode of transmission
CPT/HCPCS: 36415; 80061; 82306; 82607; 83735; 84443; 86703; G0432

== ENCOUNTER 2022-08-05 20:01 | Emergency (ER) | payer OTHER, SELFPAY ==
[2022-08-05 20:29] VITALS: BP 146/93; PULSE 98; RESP 18; TEMP 36.6; O2SAT 99
--- NOTE | 2022-08-06 01:34 | ED.GENADULT ---
HPI - General Adult General Chief complaint: Recheck/Abnormal Lab/Rx Stated complaint: possible HIV exposure Time Seen by Provider: 08/06/22 01:25 History of Present Illness HPI narrative: 32-year-old male reports for postexposure prophylaxis after he had a condom break 6 hours ago. Patient states he was having rectal intercourse with his partner when the condom broke. States he is unsure of his partner's HIV status. Patient reports that he personally had HIV testing done on 07/26 that was negative. Patient denies fever, bodies, chills, cough, congestion, chest pain, shortness of breath. He is declining gonorrhea and Chlamydia testing and treatment, syphilis testing and treatment, and hepatology labs. Related Data Home Medications Medication Instructions Recorded Confirmed duloxetine 60 mg capsule,delayed 60 mg PO DAILY 09/08/20 07/23/22 release (Cymbalta) Allergies Allergy/AdvReac Type Severity Reaction Status Date / Time amphetamine Allergy Mild anxiety Verified 07/23/22 07:53 increased dextroamphetamine Allergy Mild anxiety Verified 07/23/22 07:53 increased prednisone Allergy Mild anxiety Verified 07/23/22 07:53 worse Penicillins Allergy Unknown Unknown Verified 07/23/22 07:53 Review of Systems Review of Systems: CONSTITUTIONAL: Denies fever, chills EYES: Denies visual changes, redness, or discharge. ENT: Denies rhinorrhea, congestion, sore throat, or otalgia. CARDIOVASCULAR: Denies chest pain, palpitations, or edema. RESPIRATORY: Denies cough or dyspnea. GASTROINTESTINAL: Denies abdominal pain, nausea, vomiting, or diarrhea. GENITOURINARY: Denies dysuria or hematuria. SKIN: Denies rash or itching. MUSCULOSKELETAL: Denies back pain, joint pain, or myalgia. NEUROLOGIC: Denies headache, numbness, dizziness, or weakness. [facility] Past Medical History Medical History Adult BMI 39.0-39.9 kg/sq m Anxiety associated with depression BMI 36.0-36.9,adult BMI 38.0-38.9,adult Family History Family History Grandparent Hypertension Family history of coronary artery disease Diabetes mellitus Father Diabetes mellitus Mother Renal tubular acidosis Thyroid storm Sibling Crohn's disease Other Family history of malignant neoplasm of ovary Social History Social History Smoking packs per day: 1 Smoking cigarettes per day: 20.0 Years smoked: 10 Smoking pack-years: 10.00 Smoking status: Former smoker Tobacco type: e-cigarettes/vaping Second hand tobacco smoke exposure: No Alcohol intake: never Substance use: never Substance use type: does not use Lack of Transportation: No Lack of Food: Sometimes True Current Housing: I Have Housing Concerned About Future Housing: No Difficulty Paying Gas/Electric Bills: No Difficulty Paying for Meds: No Currently Unemployed: No Education: Bachelor's Degree Difficulty w/ Childcare or Family Care: No Living arrangements: with family Occupation/Education: occupation Additional occupation/education comments: [id number] Gender identity (if verbalized by the patient): Male Exam Narrative: GENERAL: Well-appearing, well-nourished, and in no acute distress. HEAD: Normocephalic, atraumatic. EYES: PERRLA and EOMI. ENT: Nares clear, no rhinorrhea or epistaxis. Mucous membranes moist. Oropharynx without tonsillar hypertrophy exudate or other lesions. NECK: Supple. No adenopathy or masses. No carotid bruits or JVD CHEST: Clear to auscultation. No respiratory distress. No wheezes rales or rhonchi HEART: Regular rate and rhythm. No murmur heard. Normal peripheral pulses. ABDOMEN: Soft, nontender, nondistended, normal active bowel sounds. EXTREMITIES: Normal range of motion. No edema. SKIN: Warm, dry, no rash. NEURO: No foc
[2022-08-06 02:02] LABS: HIV 1/2 Ab P24 Ag Result Negative (Negative)
[2022-08-06] MEDS: DOLUTEGRAVIR SODIUM 50 MG TABLET PO (02:21)
[2022-08-06] MEDS: EMTRICITABINE-TENOFOVIR 100 MG-150 MG TABLET 2 TAB PO (02:21)
[2022-08-06 02:32] VITALS: BP 141/69; PULSE 89; RESP 18; TEMP 36.6; O2SAT 99
== END 2022-08-06 02:32 | disposition home or self-care (01) ==
PROVIDERS: Emergency Medicine; Emergency Provider Physician Assistant; PCP Family Medicine
DX: Z20.6 Contact with and (suspected) exposure to human immunodeficiency virus [HIV] (principal); F41.8 Other specified anxiety disorders; Z87.891 Personal history of nicotine dependence
CPT/HCPCS: 36415; 86703; 96372; 99283; 99284; A9270; G0432

== ENCOUNTER 2022-08-12 16:07 | Outpatient (CLI) | payer OTHER, SELFPAY ==
[2022-08-12 16:29] LABS: Basophils Absolute Auto 0.1 K/mm3 (0.0-0.1); Basophils Percent Auto 0.9 % (0.2-1.2); Eosinophils Absolute Auto 0.3 K/mm3 (0-0.3); Hematocrit 50.2 % (42.0-52.0); Hemoglobin 16.1 g/dL (14.0-18.0); Immature Granulocyte Absolute 0.04 K/mm3 (0.00-0.031); Immature Granulocyte Percent A 0.5 % (0-0.5); Lymphocytes Absolute Auto 2.63 K/mm3 (0.9-3.2); Lymphocytes Percent Auto 32.1 % (18.3-44.2); Mean Corpuscular HGB Conc 32.1 g/dl (32-36); Mean Corpuscular Hemoglobin 26.3 pg (26-34); Mean Platelet Volume 10.4 fl (7.4-10.4); Monocytes Absolute Auto 0.6 K/mm3 (0.1-0.6); Neutrophils Absolute Auto 4.6 K/mm3 (1.3-6.7); Neutrophils Percent Auto 55.5 % (45.5-73.1); Platelet Count Result 284 k/mm3 (150-375); Red Blood Count 6.12 M/mm3 (4.6-6.20); Red Cell Distribution Width 14.1 % (11.5-14.5); White Blood Count 8.2 K/mm3 (4.5-10.0)
== END 2022-08-12 16:08 | disposition home or self-care (01) ==
LOC: ANHLAB 16:11
PROVIDERS: PCP Family Medicine; Visit Provider Internal Medicine
DX: D75.1 Secondary polycythemia (principal)
CPT/HCPCS: 36415; 85025

== ENCOUNTER 2022-09-27 09:36 | Outpatient (RCR) | payer OTHER, SELFPAY ==
[2022-09-27 09:53] LABS: Basophils Absolute Auto 0.1 K/mm3 (0.0-0.1); Basophils Percent Auto 1.1 % (0.2-1.2); Eosinophils Absolute Auto 0.4 K/mm3 (0-0.3); Eosinophils Percent Auto 4.2 % (0-4.4); Hematocrit 51.9 % (42.0-52.0); Hemoglobin 16.4 g/dL (14.0-18.0); Immature Granulocyte Absolute 0.04 K/mm3 (0.00-0.031); Immature Granulocyte Percent A 0.4 % (0-0.5); Lymphocytes Absolute Auto 3.46 K/mm3 (0.9-3.2); Lymphocytes Percent Auto 33.4 % (18.3-44.2); Mean Corpuscular HGB Conc 31.6 g/dl (32-36); Mean Corpuscular Hemoglobin 25.8 pg (26-34); Mean Corpuscular Volume 81.6 fl (80-100); Mean Platelet Volume 10.7 fl (7.4-10.4); Monocytes Absolute Auto 0.8 K/mm3 (0.1-0.6); Monocytes Percent Auto 7.8 % (2.6-8.5); Neutrophils Absolute Auto 5.5 K/mm3 (1.3-6.7); Neutrophils Percent Auto 53.1 % (45.5-73.1); Platelet Count Result 323 k/mm3 (150-375); Red Blood Count 6.36 M/mm3 (4.6-6.20); White Blood Count 10.4 K/mm3 (4.5-10.0)
== END 2022-12-26 23:59 | disposition home or self-care (01) ==
LOC: ANHLAB 09:36
PROVIDERS: PCP Family Medicine; Visit Provider Internal Medicine
DX: D75.1 Secondary polycythemia (principal)
CPT/HCPCS: 36415; 85025

== ENCOUNTER 2022-10-27 16:30 | Outpatient (CLI) | payer OTHER, SELFPAY ==
[2022-10-27 16:45] LABS: Basophils Absolute Auto 0.1 K/mm3 (0.0-0.1); Eosinophils Absolute Auto 0.3 K/mm3 (0-0.3); Eosinophils Percent Auto 3.2 % (0-4.4); Hematocrit 53.4 % (42.0-52.0); Hemoglobin 16.7 g/dL (14.0-18.0); Immature Granulocyte Absolute 0.02 K/mm3 (0.00-0.031); Immature Granulocyte Percent A 0.2 % (0-0.5); Lymphocytes Absolute Auto 2.51 K/mm3 (0.9-3.2); Lymphocytes Percent Auto 30.6 % (18.3-44.2); Mean Corpuscular HGB Conc 31.3 g/dl (32-36); Mean Corpuscular Hemoglobin 24.8 pg (26-34); Mean Corpuscular Volume 79.2 fl (80-100); Mean Platelet Volume 10.2 fl (7.4-10.4); Monocytes Absolute Auto 0.6 K/mm3 (0.1-0.6); Monocytes Percent Auto 7.6 % (2.6-8.5); Neutrophils Absolute Auto 4.7 K/mm3 (1.3-6.7); Neutrophils Percent Auto 57.4 % (45.5-73.1); Platelet Count Result 312 k/mm3 (150-375); Red Blood Count 6.74 M/mm3 (4.6-6.20); Red Cell Distribution Width 15.8 % (11.5-14.5); White Blood Count 8.2 K/mm3 (4.5-10.0)
== END 2022-10-27 16:31 | disposition home or self-care (01) ==
LOC: ANHLAB 16:32
PROVIDERS: PCP Family Medicine; Visit Provider Internal Medicine
DX: D75.1 Secondary polycythemia (principal)
CPT/HCPCS: 36415; 85025

== ENCOUNTER 2022-11-08 17:14 | Outpatient (CLI) | payer OTHER, SELFPAY ==
[2022-11-08 18:38] LABS: Prostate Specific Antigen 0.8 ng/mL (< OR = 4.0)
[2022-11-11 10:15] LABS: Testosterone Total 349 ng/dL (250-1100)
[2022-11-11 12:42] LABS: Testosterone Free 88.7 pg/mL (46.0-224.0)
== END 2022-11-08 17:15 | disposition home or self-care (01) ==
LOC: ANHLAB 17:15
PROVIDERS: PCP Family Medicine; Visit Provider Internal Medicine Endocrinology, Diabetes & Metabolism
DX: Z12.5 Encounter for screening for malignant neoplasm of prostate (principal); E29.1 Testicular hypofunction
CPT/HCPCS: 36415; 82607; 84153; 84402; 84403; G0103

== ENCOUNTER 2023-02-09 15:08 | Outpatient (CLI) | payer OTHER, SELFPAY ==
[2023-02-09 16:14] LABS: Basophils Absolute Auto 0.1 K/mm3 (0.0-0.1); Basophils Percent Auto 0.7 % (0.2-1.2); Eosinophils Absolute Auto 0.3 K/mm3 (0-0.3); Eosinophils Percent Auto 3.4 % (0-4.4); Hematocrit 51.3 % (42.0-52.0); Hemoglobin 16.1 g/dL (14.0-18.0); Immature Granulocyte Absolute 0.04 K/mm3 (0.00-0.031); Immature Granulocyte Percent A 0.4 % (0-0.5); Lymphocytes Absolute Auto 2.56 K/mm3 (0.9-3.2); Lymphocytes Percent Auto 28.7 % (18.3-44.2); Mean Corpuscular HGB Conc 31.4 g/dl (32-36); Mean Corpuscular Hemoglobin 25.1 pg (26-34); Mean Platelet Volume 10.3 fl (7.4-10.4); Monocytes Absolute Auto 0.5 K/mm3 (0.1-0.6); Monocytes Percent Auto 5.6 % (2.6-8.5); Neutrophils Absolute Auto 5.5 K/mm3 (1.3-6.7); Neutrophils Percent Auto 61.2 % (45.5-73.1); Platelet Count Result 307 k/mm3 (150-375); Red Blood Count 6.41 M/mm3 (4.6-6.20); White Blood Count 8.9 K/mm3 (4.5-10.0)
== END 2023-02-09 15:09 | disposition home or self-care (01) ==
LOC: ANHLAB 15:11
PROVIDERS: PCP Family Medicine; Visit Provider Internal Medicine
DX: D75.1 Secondary polycythemia (principal)
CPT/HCPCS: 36415; 85025

== ENCOUNTER 2023-03-21 14:35 | Emergency (ER) | payer OTHER, SELFPAY ==
[2023-03-21 14:53] VITALS: BP 140/97; PULSE 89; RESP 16; TEMP 36.7; O2SAT 98
--- NOTE | 2023-03-21 15:10 | ED.EAR ---
HPI - Ear Problem General Chief complaint: Ear Stated complaint: left ear pain Source: patient Mode of arrival: ambulatory Limitations: no limitations History of Present Illness HPI Narrative: 32-year-old male presents to [facility] with complaints of left ear discomfort and decreased hearing for the past 2 days. Pt reports that he had fever, bodyaches and chills 5 days ago which lasted approximately 2 days. Pt reports that those symptoms have since resolved. Pt has been taking OTC Motrin and Tylenol with minimal relief. Pt reports that he has not had an ear infection since childhood. MD Complaint: ear pain and decreased hearing Location: left ear Duration: intermittent Severity: mild Relieving factors: nothing Exacerbating factors: nothing Discharge from ear: Reports no Treatment prior to arrival: none Related Data Home Medications Medication Instructions Recorded Confirmed ascorbic acid (vitamin C) 1,000 mg 1 g PO DAILY 02/22/23 02/28/23 capsule duloxetine 20 mg capsule,delayed 20 mg PO DAILY 02/22/23 02/28/23 release duloxetine 60 mg capsule,delayed mg PO 02/22/23 02/28/23 release magnesium glycinate 100 mg tablet 50 mg PO DAILY 02/22/23 02/28/23 vitamin B complex with C-folic 1 tablet PO DAILY 02/22/23 02/28/23 acid 0.8 mg-zinc citrate 15 mg tablet (Dialyvite 800 with Zinc 15) vitamin E (dl, acetate) 180 mg 180 mg PO DAILY 02/22/23 02/28/23 (400 unit) capsule Zinc 03/21/23 escitalopram oxalate 10 mg tablet mg 03/21/23 Allergies Allergy/AdvReac Type Severity Reaction Status Date / Time amphetamine Allergy Mild anxiety Verified 03/21/23 15:00 increased dextroamphetamine Allergy Mild anxiety Verified 03/21/23 15:00 increased prednisone Allergy Mild anxiety Verified 03/21/23 15:00 worse Penicillins Allergy Unknown Unknown Verified 03/21/23 15:00 Review of Systems Constitutional: Constitutional: Denies chills, Denies fatigue, Denies fever(s) and Denies weakness ENT: Denies dysphagia, Denies vertigo, Denies dizziness, Denies epistaxis and Denies nasal congestion Comments: left ear discomfort Cardiovascular: Cardiovascular: Denies chest pain Respiratory: Respiratory: Denies chest congestion, Denies cough, Denies dyspnea and Denies wheezing Gastrointestinal: Gastrointestinal: Denies diarrhea, Denies nausea and Denies vomiting Integumentary/Breasts: Skin/Breast: Denies erythema, Denies rash and Denies skin ulcer Neurologic: Denies dizziness, Denies syncope and Denies headache(s) Allergic/Immunologic: Allergic/Immunologic: Denies lip swelling, Denies throat swelling, Denies tongue swelling and Denies wheezing PMFSH Past Medical History Medical History Adult BMI 39.0-39.9 kg/sq m Anxiety associated with depression BMI 36.0-36.9,adult BMI 38.0-38.9,adult Family History Family History Grandparent Hypertension Family history of coronary artery disease Diabetes mellitus Father Diabetes mellitus Mother Renal tubular acidosis Thyroid storm Sibling Crohn's disease Other Family history of malignant neoplasm of ovary Social History Social History Smoking packs per day: 1 Smoking cigarettes per day: 20.0 Years smoked: 10 Smoking pack-years: 10.00 Smoking status: Former smoker Tobacco type: e-cigarettes/vaping Second hand tobacco smoke exposure: No Alcohol intake: never Substance use: never Substance use type: does not use Lack of Transportation: No Lack of Food: Never True Current Housing: I Have Housing Concerned About Future Housing: No Difficulty Paying Gas/Electric Bills: No Difficulty Paying for Meds: No Currently Unemployed: No Education: Bachelor's Degree Difficulty w/ Childcare or Family Care: No Living arrangements: with family Occupation/Edu
--- NOTE | 2023-03-21 15:19 | PC.NURSE ---
ear irrigation set up and lighted curette at bedside.
[2023-03-21 15:30] VITALS: BP 140/97; PULSE 89; RESP 16; TEMP 36.7; O2SAT 98
== END 2023-03-21 15:41 | disposition home or self-care (01) ==
PROVIDERS: Emergency Provider Nurse Practitioner Family; PCP Family Medicine
DX: H61.22 Impacted cerumen, left ear (principal); H66.90 Otitis media, unspecified, unspecified ear; Z87.891 Personal history of nicotine dependence
CPT/HCPCS: 69209; 99213; G0463

== ENCOUNTER 2023-04-04 20:49 | Emergency (ER) | payer OTHER, SELFPAY ==
[2023-04-04 21:20] VITALS: BP 152/85; PULSE 95; RESP 20; TEMP 36.6; O2SAT 99
== END 2023-04-05 01:52 | disposition left against medical advice (07) ==
LOC: ANHED 04-05 00:15
PROVIDERS: PCP Family Medicine
DX: R10.9 Unspecified abdominal pain (principal)
CPT/HCPCS: 99199

== ENCOUNTER 2023-04-05 14:21 | Emergency (ER) | payer OTHER, SELFPAY ==
[2023-04-05 14:28] VITALS: BP 150/87; PULSE 89; RESP 18; TEMP 36.8; O2SAT 100
--- NOTE | 2023-04-05 15:24 | PC.NURSE ---
patient has cold sensitivity and feels weird . my urine is bubbly
[2023-04-05 15:49] LABS: Basophils Absolute Auto 0.1 K/mm3 (0.0-0.1); Basophils Percent Auto 0.6 % (0.2-1.2); Eosinophils Absolute Auto 0.2 K/mm3 (0-0.3); Eosinophils Percent Auto 2.4 % (0-4.4); Hematocrit 51.6 % (42.0-52.0); Hemoglobin 15.7 g/dL (14.0-18.0); Immature Granulocyte Absolute 0.03 K/mm3 (0.00-0.031); Immature Granulocyte Percent A 0.3 % (0-0.5); Lymphocytes Absolute Auto 2.98 K/mm3 (0.9-3.2); Lymphocytes Percent Auto 31.6 % (18.3-44.2); Mean Corpuscular HGB Conc 30.4 g/dl (32-36); Mean Corpuscular Hemoglobin 24.3 pg (26-34); Mean Corpuscular Volume 79.9 fl (80-100); Mean Platelet Volume 10.2 fl (7.4-10.4); Monocytes Absolute Auto 0.7 K/mm3 (0.1-0.6); Monocytes Percent Auto 7.1 % (2.6-8.5); Neutrophils Absolute Auto 5.5 K/mm3 (1.3-6.7); Platelet Count Result 319 k/mm3 (150-375); Red Blood Count 6.46 M/mm3 (4.6-6.20); Red Cell Distribution Width 17.1 % (11.5-14.5); White Blood Count 9.4 K/mm3 (4.5-10.0)
[2023-04-05 15:59] LABS: Alanine Aminotransferase 25 U/L (6-50); Albumin Level 4.7 g/dL (3.5-5.1); Alkaline Phosphatase 56 U/L (38-126); Anion Gap 7 mmol/L (8-16); Aspartate Amino Transferase 26 U/L (17-59); Bilirubin,Total 1.4 mg/dL (0.2-1.3); Blood Urea Nitrogen 10 mg/dL (9-20); Calcium 9.4 mg/dL (8.4-10.2); Carbon Dioxide 28 mmol/L (22-30); Chloride 100 mmol/L (98-107); Estimated CRCL calculation 114 ml/min; Estimated Glomerular Filt Rate > 60; Glucose 83 mg/dL (65-110); Lipase 85 U/L (23-300); Potassium 4.1 mmol/L (3.4-5.0); Sodium 135 mmol/L (137-145)
--- NOTE | 2023-04-05 17:04 | ED.GENADULT ---
HPI - General Adult General Chief complaint: Unspecified Stated complaint: abd pain Time Seen by Provider: 04/05/23 15:06 History of Present Illness HPI narrative: Patient is a 32-year-old male who presents ER with crampy upper abdominal pain. Ongoing over the last 3 days. Associated with diarrhea. No fevers but has had chills. No known sick contacts. Patient has history of needing intermittent phlebotomy due to testosterone injections. Has not required it recently. Related Data Home Medications Medication Instructions Recorded Confirmed ascorbic acid (vitamin C) 1,000 mg 1 g PO DAILY 02/22/23 02/28/23 capsule duloxetine 20 mg capsule,delayed 20 mg PO DAILY 02/22/23 02/28/23 release duloxetine 60 mg capsule,delayed mg PO 02/22/23 02/28/23 release magnesium glycinate 100 mg tablet 50 mg PO DAILY 02/22/23 02/28/23 vitamin B complex with C-folic 1 tablet PO DAILY 02/22/23 02/28/23 acid 0.8 mg-zinc citrate 15 mg tablet (Dialyvite 800 with Zinc 15) vitamin E (dl, acetate) 180 mg 180 mg PO DAILY 02/22/23 02/28/23 (400 unit) capsule Zinc 03/21/23 escitalopram oxalate 10 mg tablet mg 03/21/23 Allergies Allergy/AdvReac Type Severity Reaction Status Date / Time amphetamine Allergy Mild anxiety Verified 03/21/23 15:00 increased dextroamphetamine Allergy Mild anxiety Verified 03/21/23 15:00 increased prednisone Allergy Mild anxiety Verified 03/21/23 15:00 worse Penicillins Allergy Unknown Unknown Verified 03/21/23 15:00 Review of Systems Review of Systems: All systems reviewed & are unremarkable except as noted in HPI and below Constitutional: Constitutional: Reports chills, Reports fatigue and Denies fever(s) ENT: Reports system reviewed and no additional complaints, except as documented Cardiovascular: Cardiovascular: Reports no additional cardiovascular complaints Respiratory: Respiratory: Reports no additional respiratory complaints Gastrointestinal: Gastrointestinal: Reports abdominal pain, Reports diarrhea, Reports nausea and Denies vomiting PMFSH Past Medical History Medical History Adult BMI 39.0-39.9 kg/sq m Anxiety associated with depression BMI 36.0-36.9,adult BMI 38.0-38.9,adult Family History Family History Grandparent Hypertension Family history of coronary artery disease Diabetes mellitus Father Diabetes mellitus Mother Renal tubular acidosis Thyroid storm Sibling Crohn's disease Other Family history of malignant neoplasm of ovary Social History Social History Smoking packs per day: 1 Smoking cigarettes per day: 20.0 Years smoked: 10 Smoking pack-years: 10.00 Smoking status: Former smoker Tobacco type: e-cigarettes/vaping Second hand tobacco smoke exposure: No Alcohol intake: never Substance use: never Substance use type: does not use Lack of Transportation: No Lack of Food: Never True Current Housing: I Have Housing Concerned About Future Housing: No Difficulty Paying Gas/Electric Bills: No Difficulty Paying for Meds: No Currently Unemployed: No Education: Bachelor's Degree Difficulty w/ Childcare or Family Care: No Living arrangements: with family Occupation/Education: occupation 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 HEAD: Normocephalic, atraumatic. EYES: PERRL and EOMI. ENT: Mucous membranes moist. CHEST: Clear to auscultation. No respiratory distress. HEART: Regular rate and rhythm. Normal peripheral pulses. ABDOMEN: Soft, nontender, nondistended. EXTREMITIES: Normal range of motion. No edema. SKIN: Warm, dry, no rash. NEURO: Alert and oriented x
[2023-04-05 17:16] VITALS: BP 144/77; PULSE 77; RESP 18; O2SAT 100
== END 2023-04-05 17:17 | disposition home or self-care (01) ==
PROVIDERS: Emergency Provider Emergency Medicine; PCP Family Medicine
DX: K52.9 Noninfective gastroenteritis and colitis, unspecified (principal); F41.8 Other specified anxiety disorders; Z87.891 Personal history of nicotine dependence; Z79.51 Long term (current) use of inhaled steroids; Z79.890 Hormone replacement therapy
CPT/HCPCS: 36415; 80053; 83690; 85025; 99283

== ENCOUNTER 2023-05-18 16:30 | Outpatient (CLI) | payer OTHER, SELFPAY ==
[2023-05-18 16:59] LABS: Basophils Absolute Auto 0.1 K/mm3 (0.0-0.1); Basophils Percent Auto 0.6 % (0.2-1.2); Eosinophils Absolute Auto 0.3 K/mm3 (0-0.3); Eosinophils Percent Auto 2.4 % (0-4.4); Hematocrit 51.6 % (42.0-52.0); Hemoglobin 15.6 g/dL (14.0-18.0); Immature Granulocyte Absolute 0.03 K/mm3 (0.00-0.031); Immature Granulocyte Percent A 0.3 % (0-0.5); Lymphocytes Absolute Auto 2.79 K/mm3 (0.9-3.2); Lymphocytes Percent Auto 24.6 % (18.3-44.2); Mean Corpuscular HGB Conc 30.2 g/dl (32-36); Mean Corpuscular Hemoglobin 23.9 pg (26-34); Mean Corpuscular Volume 78.9 fl (80-100); Mean Platelet Volume 10.4 fl (7.4-10.4); Monocytes Absolute Auto 0.6 K/mm3 (0.1-0.6); Monocytes Percent Auto 5.5 % (2.6-8.5); Neutrophils Absolute Auto 7.6 K/mm3 (1.3-6.7); Neutrophils Percent Auto 66.6 % (45.5-73.1); Platelet Count Result 309 k/mm3 (150-375); Red Blood Count 6.54 M/mm3 (4.6-6.20); Red Cell Distribution Width 16.8 % (11.5-14.5); White Blood Count 11.4 K/mm3 (4.5-10.0)
[2023-05-18 17:47] LABS: Hepatitis B Surface Antigen Negative (Negative)
[2023-05-18 17:53] LABS: HAV RESULT Negative (Negative); Hepatitis B Core IgM Result Negative (Negative)
[2023-05-18 18:04] LABS: Hepatitis C Virus Antibody Negative (Negative)
[2023-05-19 15:11] LABS: Rapid Plasma Reagin Non-Reactive (NonReactive)
[2023-05-21 02:40] LABS: HIV 1 2 Ag Ab 4th Gen w Rflxs Nonreactive (Nonreactive)
== END 2023-05-18 16:31 | disposition home or self-care (01) ==
PROVIDERS: PCP Family Medicine; Referring Provider Internal Medicine; Visit Provider Physician Assistant Medical
DX: Z11.3 Encounter for screening for infections with a predominantly sexual mode of transmission (principal); D75.1 Secondary polycythemia
CPT/HCPCS: 36415; 80074; 85025; 86592; 87389

== ENCOUNTER 2023-08-15 13:30 | Outpatient (RCR) | payer OTHER, SELFPAY ==
[2023-08-15 13:50] LABS: Basophils Absolute Auto 0.1 K/mm3 (0.0-0.1); Basophils Percent Auto 0.9 % (0.2-1.2); Eosinophils Absolute Auto 0.3 K/mm3 (0-0.3); Eosinophils Percent Auto 3.9 % (0-4.4); Hematocrit 56.2 % (42.0-52.0); Hemoglobin 16.9 g/dL (14.0-18.0); Immature Granulocyte Absolute 0.03 K/mm3 (0.00-0.031); Immature Granulocyte Percent A 0.4 % (0-0.5); Lymphocytes Absolute Auto 2.52 K/mm3 (0.9-3.2); Lymphocytes Percent Auto 32.8 % (18.3-44.2); Mean Corpuscular HGB Conc 30.1 g/dl (32-36); Mean Corpuscular Hemoglobin 22.8 pg (26-34); Mean Corpuscular Volume 75.7 fl (80-100); Mean Platelet Volume 9.9 fl (7.4-10.4); Monocytes Absolute Auto 0.5 K/mm3 (0.1-0.6); Neutrophils Absolute Auto 4.2 K/mm3 (1.3-6.7); Platelet Count Result 324 k/mm3 (150-375); Red Blood Count 7.42 M/mm3 (4.6-6.20); Red Cell Distribution Width 18.8 % (11.5-14.5); White Blood Count 7.7 K/mm3 (4.5-10.0)
== END 2023-11-13 23:59 | disposition home or self-care (01) ==
LOC: ANHLAB 13:30
PROVIDERS: PCP Family Medicine; Visit Provider Physician Assistant Medical
DX: D75.1 Secondary polycythemia (principal)
CPT/HCPCS: 36415; 85025